=== PATIENT | male | born 1995 | race Hispanic/Latino ===

== ENCOUNTER 2018-03-12 10:09 | Outpatient (CLI) | payer BC ==
[~2018-03-12 10:09] MED LIST: Iopamidol 370 76% 100 ML VIAL ONE
--- NOTE | 2018-03-12 13:53 | CT ---
CONTRAST ENHANCED CT ABDOMEN: HISTORY: A 22-year-old with complaints of a history of right upper quadrant pain (R10.11). TECHNIQUE: Contrast enhanced CT images of the abdomen obtained after the administration of IV and oral contrast. FINDINGS: The lung bases are unremarkable. There is some motion artifact noted. The liver and spleen are unremarkable, but images are less than optimal due to motion artifact. The gallbladder and pancreas are unremarkable. The adrenal glands are unremarkable. The kidneys demonst rate no definite evidence of abnormalities, again partially obscured by motion. No dilated loops of small bowel seen. IMPRESSION: Suboptimal exam due to patient motion. This does degrade the quality of the examination significantl y. No significant abnormalities seen. POS: BETO
== END 2018-03-12 10:10 | disposition home or self-care (01) ==
LOC: SCSCT 10:09
PROVIDERS: ATTEND Internal Medicine Gastroenterology
DX: R10.11 Right upper quadrant pain (principal); R93.3 Abnormal findings on diagnostic imaging of other parts of digestive tract
CPT/HCPCS: 74160

== ENCOUNTER 2018-12-22 13:10 | Outpatient (CLI) | payer BC ==
--- NOTE | 2018-12-23 08:37 | NM ---
Nuclear medicine hepatobiliary scan: 12/22/2018 HISTORY: 23-year-old male with right upper quadrant abdominal pain TECHNIQUE: IV injection of 5.3 mCi of technetium [id number]-mebrofenin. Anterior view dynamic scintigraphy of upper abdomen performed for one hour. Fatty meal administered: 8 ounces of ensure. Additional dynamic scintigraphy of upper abdomen with counts obtained over gallbladder. FINDINGS: There is normal uptake and washout of activity at liver. Gallbladder appears early and fills normally . Bowel activity is visualized after insurer administration. Gallbladder ejection fraction is 35%. IMPRESSION: Borderline/low gallbladder ejection fraction suggestive of possible biliary dyskinesia.
== END 2018-12-22 13:11 | disposition home or self-care (01) ==
LOC: NM 13:10
PROVIDERS: ATTEND Physician Assistant Medical
DX: K58.9 Irritable bowel syndrome, unspecified (principal); R10.11 Right upper quadrant pain
CPT/HCPCS: 78227; A9537

== ENCOUNTER 2019-01-10 08:52 | Outpatient (CLI) | payer BC ==
[2019-01-10 09:56] LABS: #Eosinphils 0.1 thou/uL (0.0-0.7); #Lymphocytes 2.5 thou/uL (1.20-3.40); #Monocytes 0.4 thou/uL (0.11-0.59); #Neutrophils 2.2 thou/uL (1.40-6.50); %Basophils 0.5 % (0.0-1.0); %Eosinophils 1.8 % (0.0-10.0); %Lymphocytes 48.5 % (21.0-51.0); %Monocytes 7.8 % (0.0-10.0); %Neutrophils 41.4 % (42.0-75.0); Hemoglobin 14.8 g/dL (14.0-18.0); Mean Corpuscular HGB CONC 33.8 g/dL (32.0-36.0); Mean Corpuscular Hemoglobin 32.7 pg (27.0-31.0); Mean Corpuscular Volume 96.7 fL (78.0-98.0); Mean Platelet Volume 6.9 fL (7.4-10.4); Platelet Count 255 thou/uL (130-400); Red Blood Cell (RBC) Count 4.53 mill/uL (4.70-6.10); White Blood Cell (WBC) Count 5.2 thou/uL (4.8-10.8)
[2019-01-10 10:16] LABS: ALT (SGPT) 40 U/L (8-55); AST (SGOT) 47 U/L (5-34); Albumin 4.8 g/dL (3.5-5.0); Alkaline Phosphatase 79 U/L (40-150); Anion Gap 13 mmol/L (10-20); BUN (Urea Nitrogen) 14 mg/dL (8.9-20.6); Bilirubin, Direct 0.3 mg/dL (0.1-0.3); Bilirubin, Total 0.8 mg/dL (0.2-1.2); Calc. Creatinine Clearance 0 mL/min (70-130); Carbon Dioxide 25 mmol/L (22-29); Chloride 106 mmol/L (98-107); Estimated GFR-MDRD Greater than 90; Globulin 2.6 g/dL (2.4-3.5); Glucose 97 mg/dL (70-105); Potassium 4.8 mmol/L (3.5-5.1); Protein, Total 7.4 g/dL (6.0-8.3); Sodium 139 mmol/L (136-145)
== END 2019-01-10 08:53 | disposition home or self-care (01) ==
LOC: LABBT 08:52
PROVIDERS: ATTEND Surgery
DX: Z01.812 Encounter for preprocedural laboratory examination (principal); K82.8 Other specified diseases of gallbladder
CPT/HCPCS: 80053; 80076; 85025

== ENCOUNTER 2019-01-13 08:43 | Day surgery (SDC) | payer BC ==
[2019-01-10 09:03] VITALS: BMI 27.1
[2019-01-13] MEDS ORDERED: ceFAZolin Sodium (SDC) 2 GM/100 ML BAG ONE ×2 (09:17→09:48)
[2019-01-13] MEDS ORDERED: Bupivacaine/Epinephrine 0.25% 30 ML VIAL ONE (10:04)
[2019-01-13] MEDS ORDERED: Fentanyl 100 MCG/2 ML VIAL ONE ×2 (10:10→11:32)
[2019-01-13] MEDS ORDERED: Promethazine HCl 25 MG/ML VIAL ONE (11:32)
[2019-01-13] MEDS ORDERED: HYDROcodone/Acetaminophen 5/325 mg Tablet ONE (13:08)
--- NOTE | 2019-01-13 17:45 | OP ---
DATE OF PROCEDURE: 01/13/2019 PREOPERATIVE DIAGNOSIS: Chronic biliary dyskinesia. POSTOPERATIVE DIAGNOSIS: Chronic biliary dyskinesia. PROCEDURE PERFORMED: Laparoscopic cholecystectomy. SURGEON: José Miguel Henao MD ANESTHESIA: General. ESTIMATED BLOOD LOSS: Minimal. COMPLICATIONS: None. SPECIMEN: Gallbladder. FINDINGS: Chronic cholecystitis. DESCRIPTION OF PROCEDURE: The patient was taken to the operating room and laid supine on the operating room table. After general anesthetic was obtained, the abdomen was prepped and draped in a sterile fashion. A curved incision was made below the umbilicus. Cautery was used to dissect down to the umbilical fascia. Umbilical fascia was incised and held up using a Perri. The abdominal cavity was entered using a Carla clamp. Holding stitch of Vicryl was placed on each side of the fascia. Torres trocar was placed. High-flow pneumoperitoneum was obtained. An upper midline 5 mm port and 2 right upper quadrant 5 mm ports were placed under direct camera visualization. The gallbladder was retracted from the gallbladder fossa. The peritoneum of the gallbladder was opened anteriorly and posteriorly. The critical view triangle was seen showing only the cystic duct and cystic artery branching from medial to lateral. There were no other branching structures. Two clips were placed proximally on the cystic duct and one laterally. It was cut using laparoscopic scissors. The cystic artery was taken in the same way. Electrocautery was then used to dissect the gallbladder out of the gallbladder fossa. The gallbladder was placed in an Endo catch bag and brought out through the Torres. There was no bleeding or bile in the liver bed. The cystic duct stump and cystic artery stump were intact, without evidence of extravasation or bleeding. All port sites were infiltrated using local anesthesia. All ports were removed under camera visualization. Pneumoperitoneum was let down. The Vicryl was used to close the fascial defect below the umbilicus. All incisions were irrigated and closed using 4-0 Monocryl and Dermabond. The patient was en route to Recovery in stable condition. All instrument counts, needle counts and lap counts were correct. Job ID: [id number]
== END 2019-01-13 14:02 | disposition home or self-care (01) ==
LOC: SDC 08:43
PROVIDERS: ATTEND Surgery
PROC: 0FT44ZZ Resection of Gallbladder, Percutaneous Endoscopic Approach (ICD-10-PCS; principal; 2019-01-13)
DX: K81.1 Chronic cholecystitis (principal); K82.8 Other specified diseases of gallbladder; Z79.899 Other long term (current) drug therapy
CPT/HCPCS: 88304; J0690; J2550; J3010

== ENCOUNTER 2019-04-20 08:19 | Outpatient (CLI) | payer BC ==
--- NOTE | 2019-04-20 09:57 | MRI ---
MRI CERVICAL SPINE WITHOUT CONTRAST: HISTORY: Neck pain. Pain radiates down both shoulders x6 months. COMPARISON: None. FINDINGS: Appropriate T1 marrow signal intensity of the cervical vertebrae. Cervical spine vertebral body heigh t is maintained. No fracture. No significant STIR hyperintensity to suggest vertebral body edema or ligamentous injury. Straightening of normal cervical lordosis is presumed to be positional. The visualized brain parenchyma, cervicomedullary junction, cervical cord and the upper thoracic cord have normal size and signal intensity C2-C3: No significant central canal stenosis or significant neural foraminal narrowing C3-C4: No significant central canal stenosis or significant neural foraminal narrowing. C4-C5: No significant central canal stenosis or significant neural foraminal narrowing. C5-C6: Minimal loss of disc space height. Central disc bulge. Minimal central canal stenosis. Bilater ally, neural foramina are patent. C6-C7: Mild loss of disc space height. Broad based disc bulge with a small central disc protrusion. N o significant central canal stenosis. Mild bilateral neural foraminal narrowing. C7-T1: No significant canal stenosis. Bilaterally, neural foramen are patent. IMPRESSION: Minimal degenerative disc disease at C5-C6 and C6-C7. No significant central canal stenosis or signif icant neural foraminal narrowing throughout the cervical spine. Transcribed Date/Time: 04/20/2019 10:21 AM
== END 2019-04-20 08:20 | disposition home or self-care (01) ==
LOC: BICMRI 08:19
PROVIDERS: ATTEND Psychiatry & Neurology Neurology
DX: M54.2 Cervicalgia (principal); R42 Dizziness and giddiness; M50.322 Other cervical disc degeneration at C5-C6 level
CPT/HCPCS: 72141